=== PATIENT | male | born 1970 | race Caucasian/White ===

== ENCOUNTER 2025-04-07 17:06 | Emergency (ER) | payer MEDICAID, SELFPAY ==
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
[2025-04-07 17:10] VITALS: BP 145/97; PULSE 67; RESP 18; TEMP 36.6; O2SAT 97
--- NOTE | 2025-04-07 18:08 | ECG_ITS ---
Test Date: 2025-04-07 18:40:11 Measurements Intervals [place] Rate: 63 P: 29 MS: 158 QRS: 43 QRSD: 102 T: 47 QT: 430 QTc: 442 Interpretive Statements SINUS RHYTHM NORMAL ECG No previous ECG available for comparison Electronically Signed On 04-08-2025 05:10:59 CDT by Kike De Paz D.O.
[2025-04-07 18:43] VITALS: BP 162/103; PULSE 71; RESP 14; O2SAT 100
[2025-04-07 18:44] LABS: Hematocrit 49.7 % (42.0-52.0); Hemoglobin 16.4 g/dL (14.0-18.0); Immature Granulocyte Percent A 0.4 % (0-0.5); Immature Platelet Fraction Pct 6.4 % (0.9-11.2); Lymphocytes Absolute Auto 1.73 K/mm3 (0.9-3.2); Mean Corpuscular HGB Conc 33.0 g/dl (32-36); Mean Corpuscular Hemoglobin 31.0 pg (26-34); Mean Corpuscular Volume 94.0 fl (80-100); Nucleated Red Blood Cells Absolute Auto 0.000 K/mm3 (0.0-0.012); Nucleated Red Blood Cells Perc 0.0 % (0.0-0.2); Platelet Count Result 109 k/mm3 (150-375); Red Blood Count 5.29 M/mm3 (4.6-6.20); White Blood Count 8.2 K/mm3 (4.5-10.0)
[2025-04-07 18:53] LABS: INR 1.0; Prothrombin Time 13.4 Seconds (11.1-14.7)
[2025-04-07 18:54] LABS: Partial Thromboplastin Time 31.3 Seconds (22.3-36.8)
[2025-04-07 18:55] LABS: Alanine Aminotransferase 24 U/L (6-50); Albumin Level 4.3 g/dL (3.5-5.1); Alkaline Phosphatase 71 U/L (38-126); Anion Gap 5 mmol/L (4-12); Aspartate Amino Transferase 17 U/L (17-59); Bilirubin,Total 0.5 mg/dL (0.2-1.3); Blood Urea Nitrogen 18 mg/dL (9-20); Calcium 8.8 mg/dL (8.4-10.2); Carbon Dioxide 28 mmol/L (22-30); Chloride 107 mmol/L (98-107); Estimated CRCL calculation 113 ml/min; Estimated Glomerular Filt Rate > 60; Glucose 95 mg/dL (65-110); Lipase 31 U/L (23-300); Potassium 3.9 mmol/L (3.4-5.0); Sodium 140 mmol/L (137-145); Total Protein 7.0 g/dL (6.3-8.2)
[2025-04-07 19:06] LABS: Troponin I < 0.012 ng/mL (0.000-0.034)
--- OUTSIDE RECORDS SUMMARY | 2025-04-07 19:34 | XMS_ITS | Clinical Summary ---
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 Gender Identity Not on file Sexual Orientation Not on file Plan of Treatment Health Maintenance Due Date Last Done Comments CT Colonography 1970 Colonoscopy 1970 Colorectal Cancer Screening 1970 Fecal DNA Test 1970 Lab-Cholesterol Screening 1970 Lab-Hepatitis C Screening 1970 Sigmoidoscopy 1970 Annual Wellness Visit 1988 Hepatitis B Vaccine (1 of 3 - 19+ 3-dose series) 1989 Tetanus/Pertussis Vaccine Teen/Adult (1 - Tdap) 1989 FOBT/FIT 1990 Pneumococcal Vaccines 50+ (1 of 1 - PCV) 2020 Zoster (Shingles) Vaccine 50 + (1 of 2) 2020 COVID-19 Vaccine ( - 2023-2 5 season) 2025 Influenza Vaccine (#1) 2025 RSV Adult (1 - 1-dose 75+ series) 2045 HIB Vaccine Aged Out No longer eligi ble based on patient's age to complete this topic HPV Vaccine (9-26yo & Shared Decision 27-45yo) Aged Out No longer eligible b ased on patient's age to complete this topic Hepatitis A Vaccine Aged Out No longe r eligible based on patient's age to complete this topic IPV Vaccine Aged Out No longer eligi ble based on patient's age to complete this topic Meningococcal Conjugate Vaccine Aged Out No longer eligible based on patient's age to complete this topic RSV < 20 Months Aged Out No longer el igible based on patient's age to complete this topic Care Teams Freight Rate Specialist Relationship Specialty Start Date End Date Patient, None Per PCP - General 05/10/15
--- OUTSIDE RECORDS SUMMARY | 2025-04-07 19:34 | XMS_ITS | Clinical Summary ---
Author Organization [facility] Address [address] [place] [address], [place]. [address] [place] [address] Care Team Providers Care News Gathering Technician Name Role Phone Default, Bright Provider Primary Care Provider Unav ailable Source Comments This disclosure is being made pursuant to the Care Everywhere program,applicable federal and state laws, and may not contain all informationavailable regarding this patient.[facility] Medications No known medications Active Problems Problem Noted Date Diagnosed Date Adjustment disorder with anxiety 11/14/2017 Social History Tobacco Use Types Packs/Day Years Used Date Smoking Tobacco: Never Assessed Sex and Gender Information Value Date Recorded Sex Assigned at Not on file Legal Sex Male 12:02 AM CDT Gender Identity Not on file Sexual Orientation Not on file Plan of Treatment Health Maintenance Due Date Last Done Comments Annual Physical Visit 1973 HIV [place] Screening 1985 HCV Screening 1988 Hepatitis B Vaccine (1 of 3 - 19+ 3-dose series) 1989 Lipid Disorder Screening 1991 CT Colonography 2015 Colonoscopy 2015 Colorectal Screening 2015 FIT-DNA 2015 FIT 2015 FOBT 2015 Flex Sigmoidoscopy 2015 Prostate Cancer Screening / Surveillance 04/20/2020 Pneumococcal Vaccine (1 of 1 - PCV) 2020 Zoster Vaccine (1 of 2) 2020 [id number] Vaccine ( - season SCDM) 03/08/2025 Influenza Vaccine: Seasonal (#1) 03/08/2025 04/01/2017, 04/16/2016, 04/07/2014, Additional history exists Tetanus Diphtheria Pertussis (2 - Td or Tdap) 06/06/2026 06/06/2016 Care Teams News Gathering Technician Relationship Specialty Start Date End Date Default, Bright Provider BRIGHT - Default [place] [id number] PCP - General 11/13/17
--- OUTSIDE RECORDS SUMMARY | 2025-04-07 19:34 | XMS_ITS | Referral Summary ---
Author Organization [facility] Address [address] [place] [address], [place]. [address] [place] [address] Care Team Providers Care Vp Organizational Development Name Role Phone Default, Bright Provider Primary Care Provider Unav ailable Source Comments This disclosure is being made pursuant to the Care Everywhere program,applicable federal and state laws, and may not contain all informationavailable regarding this patient.[facility] Medications No known medications Active Problems Problem Noted Date Diagnosed Date Adjustment disorder with anxiety 11/14/2017 Social History Tobacco Use Types Packs/Day Years Used Date Smoking Tobacco: Never Assessed Sex and Gender Information Value Date Recorded Sex Assigned at Not on file Legal Sex Male 12:02 AM CDT Gender Identity Not on file Sexual Orientation Not on file Plan of Treatment Not on file Care Teams Vp Organizational Development Relationship Specialty Start Date End Date Default, Bright Provider [place] [id number] PCP - General 11/13/17
[2025-04-07 19:59] LABS: Add Urine Microscopic? NO; Appearance Urine Clear (Clear); Glucose Urine UA Negative (Negative); Leukocyte Esterase Ur Negative LEU/UL (Negative); Nitrate Urine Negative (Negative); Specific Grav Ur 1.020 (1.001-1.035)
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
[2025-04-07 20:19] LABS: Cannabinoid Screen Urine Positive (Negative)
[2025-04-07] MEDS: HYDROmorphone HCL INJ (*CRX) 1 MG/ML SYR 0.5 MG IV PUSH (20:26)
[2025-04-07 21:06] VITALS: BP 130/89; PULSE 71; RESP 16; TEMP 36.6; O2SAT 95
== END 2025-04-07 21:07 | disposition short-term general hospital (02) ==
PROVIDERS: Emergency Provider Emergency Medicine
DX: S00.03XA Contusion of scalp, initial encounter (principal); S70.12XA Contusion of left thigh, initial encounter; Z98.84 Bariatric surgery status; M19.022 Primary osteoarthritis, left elbow; M47.812 Spondylosis without myelopathy or radiculopathy, cervical region; N20.0 Calculus of kidney; N40.0 Benign prostatic hyperplasia without lower urinary tract symptoms; R91.8 Other nonspecific abnormal finding of lung field; V68.5XXA Driver of heavy transport vehicle injured in noncollision transport accident in traffic accident, initial encounter
CPT/HCPCS: 36415; 70450; 71045; 71260; 72125; 73030; 73080; 73562; 74177; 80053; 80307; 81003; 82077; 83605; 83690; 84484; 85025; 85055; 85610; 85730; 93005; 96374; 99285; J1171; Q9967